=== PATIENT | male | born 1985 | race African-American/Black ===

== ENCOUNTER 2024-02-28 20:39 | Emergency (ER) | payer OTHER ==
[2024-02-28] MEDS ORDERED: ONDANSETRON 4 MG/2 ML VIAL ONE (21:48)
--- NOTE | 2024-02-28 22:10 | ER ---
Nurse's Notes [facility] Name: Humaira Sigala Age: 38 yrs Sex: Male : 1985 Arrival Date: 02/28/2024 Time: 20:39 Bed 3 Private MD: Diagnosis: Vomiting, unspecified Presentation: 02/27 20:52 Chief complaint: EMS states: [facility] AFTER br2 BEING FOUND ON THE FLOOR AMS ROLLING ON THE FLOOR IN VOMIT. PT ARRIVES TO ER COVERED EMESIS AWAKE AND ALERT. PT ANWERS MINIMAL QUESTIONS AND C/O CUFFS BEING TOO TIGHT. SECURITY STATE THEY WILL NOT LOOSEN DUE TO PATIENT BEING AGGRESSIVE PRIOR TO ARRIVAL BILATERAL RADIAL PULSE STRONG +3. 20:52 Method Of Arrival: EMS: [facility] br2 20:52 Coronavirus screen: Client denies travel out of the [place] in the last 14 days. Ebola br2 Screen: Patient denies travel to an Ebola-affected area in the 21 days before illness onset. Initial Sepsis Screen: Does the patient meet any 2 criteria? No. Patient's initial sepsis screen is negative. Does the patient have a suspected source of infection? No. Patient's initial sepsis screen is negative. Risk Assessment: Do you want to hurt yourself or someone else? Patient reports no desire to harm self or others. Onset of symptoms was February 28, 2024 at 19:45. 20:52 Acuity: LUCY 3 br2 Triage Assessment: 20:52 General: Appears in no apparent distress. slender, Behavior is flat. Pain: Complains of br2 pain in right arm and left wrist Pain does not radiate. Pain currently is 10 out of 10 on a pain scale. Quality of pain is described as WHERE HANDCUFFS ARE....C/O THEM BEING TIGHT. GI: VOMITING PRIOR TO ARRIVAL. Historical: - Allergies: 22:01 No Known Allergies; bo1 - Immunization history:: Adult Immunizations up to date. - Infectious Disease History:: Denies. - Social history:: Smoking status: unknown. Screenin:52 [facility] ED Fall Risk Assessment (Adult) History of falling in the last 3 months, br2 including since admission No falls in past 3 months (0 pts) Confusion or Disorientation No (0 pts) Intoxicated or Sedated No (0 pts) Impaired Gait No (0 pts) Mobility Assist Device Used No (0 pt) Altered Elimination No (0 pt) Score/Fall Risk Level 0 - 2 = Low Risk Oriented to surroundings. Abuse screen: Denies threats or abuse. Denies injuries from another. Nutritional screening: No deficits noted. Tuberculosis screening: No symptoms or risk factors identified. Assessment: 20:52 Reassessment: SEE TRIAGE ASSESSMENT. br2 21:45 Reassessment: No changes from previously documented assessment. Patient and/or family br2 updated on plan of care and expected duration. Pain level reassessed. Patient is alert, oriented x 3, equal unlabored respirations, skin warm/dry/pink. 22:26 Reassessment: PT REFUSING ANY TREATMENT OR ANY LAB WORK TO BE DONE. br2 Overdose: 20:52 Gamaliel Suicide Severity Screening:. br2 Vital Signs: 21:45 BP 124 / 76; Pulse 85; Resp 18 S; Temp 97.2; Pulse Ox 97% on R/A; br2 22:25 BP 113 / 88; Pulse 87; Resp 18 S; Temp 97.1(TE); Pulse Ox 96% on R/A; br2 ED Course: 20:42 Patient arrived in ED. ra3 20:52 Yolette Carlton, RN is Primary Nurse. br2 20:52 Patient has correct armband on for positive identification. Bed in low position. Side br2 rails up X2. SECURITY AT BEDSIDE X3. 21:03 Inserted saline lock: 20 gauge in left forearm, using aseptic technique. Blood dd2 collected. Flushed with 10 mL NS. 21:33 Tera Sahu MD is Attending Physician. bo1 22:14 Triage completed. br2 22:25 IV discontinued, intact, bleeding controlled, No redness/swelling at site. Pressure br2 dressing applied. 22:30 No provider procedures requiring assistance completed. br2 22:31 Provided Education on: DISCHARGE INSTRUCTIONS. br2 Administered Medications: 21:50 Drug: Ondansetron IVP 4 mg IVP once; over 2 minutes Route: IVP; Site: left hand; br2 22:32 Follow up: Response: No adverse reaction; Vomiting decreased br2 21:51 Drug: Ondansetron IVP 4 mg IVP once; over 2 minutes Route: IVP; Site: left hand; br2 22:32 Follow up: Response: Vomiting decreased br2 Medication: 22:31 VIS not applicable for this client. br2 Outcome: 22:08 Discharge ordered by . bo1 22:30 Discharged to Law Enforcement br2 22:30 Condition: improved 22:30 Discharge instructions given to police, Instructed on discharge instructions, Demonstrated understanding of instructions, follow-up care, 22:32 Patient left the ED. br2 Signatures: Piedad Shelby ra3 Tera Sahu MD MD bo1 Yolette Carlton, RN RN br2 SHITAL DONALDSON RN RN dd2 Corrections: (The following items were deleted from the chart) 22:25 22:12 BP 124 / 76; Pulse 85bpm; Resp 18bpm; Spontaneous; Pulse Ox 97% RA; Temp 97.2F; br2 br2
--- NOTE | 2024-02-28 22:10 | EDPHYS ---
Physician Documentation [facility] Name: Humaira Sigala Age: 38 yrs Sex: Male : 1985 Arrival Date: 02/28/2024 Time: 20:39 Bed 3 Private MD: ED Physician Tera Sahu HPI: 02/27 21:55 This 38 yrs old Black Male presents to ER via EMS with complaints of Overdose. bo1 21:55 The patient presents to the emergency department with a possible poisoning, Pt has bo1 witheld what he ingested or took while in halfway. Context: and was witnessed [facility] staff found the pt on the floor with copious vomit and agitated state \\T\\ 6pm. [facility] has closed at 5pm. Associated signs and symptoms: Pertinent positives: vomiting. Severity of symptoms: At their worst the symptoms were severe in the emergency department the symptoms have resolved. Pt will not confirm or deny ingestion. He is currently refusing any further care or investigation into the possible OD or substance exposures. Historical: - Allergies: 22:01 No Known Allergies; bo1 - Immunization history:: Adult Immunizations up to date. - Infectious Disease History:: Denies. - Social history:: Smoking status: unknown. ROS: 22:01 Constitutional: Negative for fever, chills, and weight loss bo1 22:01 Cardiovascular: Negative for chest pain, 22:01 Respiratory: Negative for cough, shortness of breath, Or choking, 22:01 Abdomen/GI: Positive for Emesis stains to the face, neck and outfit worn at halfway, Negative for abdominal pain, 22:01 Skin: Positive for discoloration, rash, 22:01 Neuro: Negative for altered mental status, acute changes, 22:01 Psych: Negative for auditory hallucinations, visual hallucinations, homicidal ideation, suicide gesture, suicidal ideation, 22:01 All other systems are negative, Exam: 22:03 Constitutional: This is a well developed, well nourished patient who is awake, alert, bo1 and in no acute distress. Stains of recent emesis on the pt externally 22:03 Constitutional: The patient appears alert, awake, comfortable, In his halfway outfit and cuffs 22:03 Eyes: Sclera: no acute changes, 22:03 Neck: External neck: is normal, 22:03 Cardiovascular: Rate: normal, Rhythm: regular, Pulses: no pulse deficits are appreciated, 22:03 Respiratory: the patient does not display signs of respiratory distress, Respirations: normal, Breath sounds: are clear throughout, No evidence of impaired airway or breathing, 22:03 Abdomen/GI: Inspection: abdomen appears normal, Bowel sounds: normal, Palpation: nontender, rebound tenderness, is not appreciated, 22:03 Skin: Stains of recent emesis - non bloody. 22:03 Psych: Behavior/mood is cooperative, appropriate for age, Affect is calm, Oriented to person, place, Patient has no thoughts/intents to harm self or others. Delusions/hallucinations are not present. Vital Signs: 21:45 BP 124 / 76; Pulse 85; Resp 18 S; Temp 97.2; Pulse Ox 97% on R/A; br2 22:25 BP 113 / 88; Pulse 87; Resp 18 S; Temp 97.1(TE); Pulse Ox 96% on R/A; br2 MDM: 21:33 Medical Screening Exam initiated bo1 22:06 Differential diagnosis: Ingestion/exposure to Unknown product or substance sourced at [facility] halfway. Data reviewed: vital signs. ED course: Pt is cleared medically by exam and vitals. History is suspect for possible ingestion. Pt is actively refusing any care and investigations. He will be given Zofran and discharged back to halfway to "clean up.". Administered Medications: 21:50 Drug: Ondansetron IVP 4 mg IVP once; over 2 minutes Route: IVP; Site: left hand; br2 22:32 Follow up: Response: No adverse reaction; Vomiting decreased br2 21:51 Drug: Ondansetron IVP 4 mg IVP once; over 2 minutes Route: IVP; Site: left hand; br2 22:32 Follow up: Response: Vomiting decreased br2 Disposition Summary: 02/28/24 22:08 Discharge Ordered Notes: Location: Other bo Problem: new bo1 Symptoms: are resolved bo1 Condition: Stable bo1 Diagnosis - Vomiting, unspecified bo1 Followup: bo1 - With: Private Physician - When: As needed - Reason: Recheck today's complaints Discharge Instructions: - Discharge Summary Sheet bo1 - Vomiting, Adult bo1 Forms: - Medication Reconciliation Form bo1 - Antibiotic Education bo1 - Prescription Opioid Use bo1 - Patient Portal Instructions bo1 - Leadership Thank You Letter bo1 Prescriptions: - FIT for [facility] - take 1 unit ORAL route once; 1 unit; Refills: 0, Product Selection Permitted bo1 Signatures: Tera Sahu MD MD bo1 Yolette Carlton RN RN br2
[2024-02-29 06:09] VITALS: BP 113/88; TEMP 97.1; O2SAT 96
== END 2024-02-28 22:32 | disposition home or self-care (01) ==
LOC: ER 20:39
DX: R11.10 Vomiting, unspecified (principal)
CPT/HCPCS: 96374; 99284; J2405